=== PATIENT | male | born 1975 | race Hispanic/Latino ===

== ENCOUNTER → 2024-08-10 | Outpatient (REF) | payer OTHER ==
[~2024-08-10] MED LIST: METOPROLOL TARTRATE INJ 1 MG/ML VIAL ONE; NITROGLYCERIN 0.4 MG SUBL ONE
[2024-08-10 08:31] LABS: CREATININE, SERUM 0.78 mg/dL (0.72-1.25)
== END ==
LOC: CT 07:09
PROVIDERS: ATTEND Internal Medicine Cardiovascular Disease
DX: R07.9 Chest pain, unspecified (principal); I50.20 Unspecified systolic (congestive) heart failure
CPT/HCPCS: 36415; 75574; 82565; 84520